=== PATIENT | male | born 1990 | race Caucasian/White ===

== ENCOUNTER 2018-12-07 08:11 | Emergency (ER) | payer BC ==
[~2018-12-07] VITALS: Ht 180.3 cm; Wt 71.2 kg
[2018-12-07 08:25] VITALS: Ht 180.3 cm; Wt 71.2 kg
[2018-12-07 09:09] VITALS: BP 120/75
== END 2018-12-07 09:00 | disposition home or self-care (01) ==
LOC: ED 08:11
DX: H01.001 Unspecified blepharitis right upper eyelid (principal)